=== PATIENT | male | born 1960 | race Caucasian/White ===

== ENCOUNTER 2019-11-01 11:33 | Outpatient (REF) | payer OTHER, SELFPAY ==
--- NOTE | 2019-11-01 08:30 | SKI_PTH ---
PATIENT: Ash Rodriguez LOC: [facility] U#:[id number] AGE/SX: 59/M ROOM: RE11/01/[address]: Johann Chung DO : 1960 BED: DIS: 11/01/2019 SPEC #: [id number] RECD: 11/02/19 12:17 STATUS: LILIYA REYair #: [id number] MIO: 11/01/19 08:[address]: Johann Chung DEPT: Surgical Specimen RECD BY: Areli Rivero Tissues: 1 - SKIN BIOPSY(SHAVE/PUNCH) Procedures: SKIN LEVEL 4 Comments: [id number]
== END 2019-11-01 11:53 ==
LOC: LBN 11:33
PROVIDERS: PCP Emergency Medicine; Visit Provider Emergency Medicine
DX: L82.1 Other seborrheic keratosis (principal)
CPT/HCPCS: 88305

== ENCOUNTER 2020-11-12 11:39 | Outpatient (REF) | payer OTHER, SELFPAY ==
[2020-11-12 22:28] LABS: PSA, Screening 0.8 ng/mL (0.0-3.5)
== END 2020-11-12 11:40 | disposition home or self-care (01) ==
LOC: LBN 11:39
PROVIDERS: PCP Emergency Medicine; Visit Provider Emergency Medicine
DX: Z12.5 Encounter for screening for malignant neoplasm of prostate (principal)
CPT/HCPCS: 84153

== ENCOUNTER 2021-06-11 02:21 | Outpatient (CLI) | payer OTHER, SELFPAY ==
[2021-06-11 09:28] LABS: Calculated LDL 51 mg/dL (<100); Cholesterol 111 mg/dL (<200); HDL Cholesterol 46 mg/dL (40-60); Triglyceride 72 mg/dL (<150)
== END 2021-06-11 02:22 | disposition home or self-care (01) ==
LOC: LBO 02:21
PROVIDERS: PCP Family Medicine; Visit Provider Emergency Medicine
DX: I21.3 ST elevation (STEMI) myocardial infarction of unspecified site (principal)
CPT/HCPCS: 36415; 80061; S9472

== ENCOUNTER 2021-06-23 08:00 | Outpatient (RCR) | payer OTHER, SELFPAY | END 2021-06-23 23:59 | disposition home or self-care (01) | LOC: CR 08:00 | PROVIDERS: PCP Family Medicine; Visit Provider Family Medicine | DX: Z51.89 Encounter for other specified aftercare (principal); I25.2 Old myocardial infarction | CPT/HCPCS: S9472 ==

== ENCOUNTER 2021-07-08 08:41 | Outpatient (CLI) | payer OTHER, SELFPAY ==
--- NOTE | 2021-07-08 08:30 | RT.EKG_ITS ---
APPROVED REPORT Exam: Resting ECG Reason for Exam: [place] Patient Location: O HR:56 bpm ECG Measurements Heart Rate 56 AXIS OH 189 P 69 QRSd 90 QRS 31 QT 412 T 50 QTc 398 Conclusion Sinus rhythm...normal P axis, V-rate 50- 99 Probable left atrial enlargement...P >50mS, <-0.10mV V1 Low voltage, extremity leads...all extremity leads <0.5mV Poor R wave progression
== END 2021-07-08 08:42 | disposition home or self-care (01) ==
LOC: DI.CARD 08:42
PROVIDERS: PCP Family Medicine; Visit Provider Internal Medicine Cardiovascular Disease
DX: I21.3 ST elevation (STEMI) myocardial infarction of unspecified site (principal)
CPT/HCPCS: 93010

== ENCOUNTER 2021-07-18 08:00 | Outpatient (RCR) | payer OTHER, SELFPAY | END 2021-07-21 23:59 | disposition home or self-care (01) | LOC: CR 08:00 | PROVIDERS: PCP Family Medicine; Visit Provider Family Medicine | DX: Z51.89 Encounter for other specified aftercare (principal); I25.2 Old myocardial infarction | CPT/HCPCS: S9472 ==

== ENCOUNTER 2021-08-20 08:00 | Outpatient (RCR) | payer OTHER, SELFPAY | END 2021-08-21 23:59 | disposition home or self-care (01) | LOC: CR 08:00 | PROVIDERS: PCP Family Medicine; Visit Provider Family Medicine | DX: Z51.89 Encounter for other specified aftercare (principal); I25.2 Old myocardial infarction | CPT/HCPCS: S9472 ==

== ENCOUNTER 2021-09-17 08:00 | Outpatient (RCR) | payer OTHER, SELFPAY | END 2021-09-20 23:59 | disposition home or self-care (01) | LOC: CR 08:00 | PROVIDERS: PCP Family Medicine; Visit Provider Internal Medicine Cardiovascular Disease | DX: Z51.89 Encounter for other specified aftercare (principal); I25.2 Old myocardial infarction | CPT/HCPCS: S9472 ==

== ENCOUNTER → 2021-10-28 00:33 | Outpatient (CLI) | payer OTHER, SELFPAY ==
--- NOTE | 2021-10-28 15:14 | DI.US_ITS ---
APPROVED REPORT EXAM: Comprehensive 2D, Doppler, and color-flow Echocardiogram Patient Location: Out-Patient Ship Rigger: Cammie Panda RDCS (AE) Indications: MN, Stemi Other Information Study Quality: Adequate Conclusion Normal left ventricular wall thickness and chamber size. Estimated ejection fraction is 55-60%. Wal l motion is normal Normal right ventricular size and systolic function Both atria are normal in size There is no structural or hemodynamically significant valvular disease Estimated right ventricular systolic pressure is normal, 26 mmHg Wall motion Left Ventricle The left ventricle is normal size. The left ventricular systolic function is normal. The left ventric ular ejection fraction is within the normal range. There is normal left ventricular wall thickness. T here is normal LV segmental wall motion. There is no ventricular septal defect visualized. LVEF is 58 %. Right Ventricle The right ventricle is normal size. The right ventricular systolic function is normal. The RVSP is 25 .8 mmHg. Atria The left atrium size is normal. The right atrium size is normal. The interatrial septum is intact wit h no evidence for an atrial septal defect. Aortic Valve The aortic valve is normal in structure. There is no aortic valvular stenosis. No aortic regurgitatio n is present. Mitral Valve The mitral valve is normal in structure. No evidence of mitral valve stenosis. Trace mitral regurgita tion. Tricuspid Valve The tricuspid valve is normal in structure. There is no tricuspid valve stenosis. Trace to mild tricu spid regurgitation. Pulmonic Valve The pulmonary valve is normal in structure. There is no pulmonic valvular stenosis. There is no pulmo fabio valvular regurgitation. Great Vessels The aortic root is normal in size. The ascending aorta is normal in size. IVC is normal in size and c ollapses >50% with inspiration. Pericardium There is no pericardial effusion. 2D Dimensions IVSD d PLAX 0.80 cm M: 0.6-1.2 LV Vol A2C d MOD 97.8 mL LVPW d PLAX 0.87 cm M: 0.6 - 1.2 LV Vol A4C d MOD 128.5 mL LVID d PLAX 5.04 cm M: 4.2 - 5.8 LA vol/ BSA A2C s A-L 17.3 mL/m2 LVDs 3.45 cm M: 2.5 - 4.0 LA vol/ BSA A4C s A-L 20.1 mL/m2 Ao Root d 3.00 cm M: 3.1 - 3.7 LA Vol/ BSA Biplane s A-L 19.6 mL/m2 RA Area A4C 13.84 cm2 LA Area A4C s MOD 14.69 cm2 RA Vol/ BSA A4C s A-L 17.5 mL/m2 LA Area A2C s MOD 12.95 cm2 Ao Asc Diam d 3.12 cm M: 2.6 - 3.4 LV EF A4C MOD 57.4 % LV EF Teichholz 57.9 % LV EF A2C MOD 60.6 % LVEF (Agarwal's) 59.12 % M: 52 - 72 LV EF Biplane MOD 59.1 % LV Volume 86.93 mL M: 62 - 150 SV 67.19 mL LV Volume Index 46.23 mL/m2 M: 34 - 74 SV Index 35.61 mL/m2 LV Vol Biplane MOD 113.6 mL FS 30.60 % M-Mode TAPSE 2.85 cm (M/F) >1.7 LV Diastology MV E' medial 0.073 (>0.07 m/s) E/A Ratio 0.7 LV E/e MED 7.45 (<14) MV E Vmax 0.55 (0.4-1.3 m/s) MV E' lateral 0.078 (>0.1 m/s) MV A Vmax 0.75 (0.4-1.3 m/s) LV E/e LAT 7.00 (<14) MV E/A Ratio 0.70 MV E/E' medial 7.47 MV E/E' lateral 7.00 Aortic Valve LVOT Area 3.01 cm2 AoV Area Vmax 2.94 cm2 LVOT Vmax 1.03 m/s AoV Area/ BSA (Vmax) 1.56 cm2/m2 LVOT Mean Jasbir. 0.67 m/s LEATHA Mean Jasbir. 2.62 cm2 LVOT Peak Grad 4.3 mmHg LEATHA Mean Jasbir. Index 1.39 cm2/m2 LVOT Mean Grad 2.1 mmHg LVOT VTI 0.229 m LVOT Diam s 1.95 cm AoV Vmax 1.06 m/s Velocity Ratio 0.97 AoV Mean Jasbir. 0.78 m/s AoV Peak Grad 4.5 mmHg LVOT SV 69.05 mL AoV Mean Grad 2.6 mmHg AoV VTI 0.241 m AoV Area VTI 2.86 cm2 AoV Area/ BSA (VTI) 1.52 cm/m2 Mitral Valve MV DT 281 (160-240 msec) MV PHT 81 msec MV Area PHT 2.70 cm2 MV VTI 0.301 m MV Area VTI 2.30 (4.0-6.0 cm2) Pulmonary Valve PV Vmax 1.10 (0.5-1.5 m/s) RVOT Peak Gr. 1.31 mmHg PV Peak Grad 4.8 mmHg RVOT Mean Gr. 0.85 mmHg PV Mean Grad 2.5 mmHg RVOT VTI 0.138 m PV VTI 0.264 m RVOT Vmax 0.57 m/s Tricuspid Valve TR Peak Grad 22.5 mmHg TR Vmax 2.38 m/s RA Pressure 3.00 mmHg RVSP (TR) 25.8 mmHg
== END ==
PROVIDERS: PCP Family Medicine; Visit Provider Internal Medicine Cardiovascular Disease
DX: I21.3 ST elevation (STEMI) myocardial infarction of unspecified site (principal)
CPT/HCPCS: 93306

== ENCOUNTER 2022-11-19 04:20 | Outpatient (CLI) | payer OTHER, SELFPAY ==
[2022-11-19 16:04] LABS: Hemoglobin A1C 6.4 % (<5.7)
[2022-11-19 17:02] LABS: BUN 22 mg/dL (7-18); CREATININE 1.4 mg/dL (0.70-1.30); Calcium 8.6 mg/dL (8.5-10.1); Calculated LDL 37 mg/dL (<100); Chloride 104 mmol/L (98-107); Cholesterol 95 mg/dL (<200); Estimated GFR 57.54 (mL/min/1.73m2); Glucose 83 mg/dL (74-106); HDL Cholesterol 46 mg/dL (40-60); Potassium 3.9 mmol/L (3.5-5.1); Sodium 141 mmol/L (136-145); Triglyceride 63 mg/dL (<150)
[2022-11-19 23:09] LABS: PSA, Screening 0.8 ng/mL (<=4.5)
== END 2022-11-19 04:21 | disposition home or self-care (01) ==
LOC: LBO 04:20
PROVIDERS: PCP Nurse Practitioner Family; Visit Provider Nurse Practitioner Family
DX: Z00.00 Encounter for general adult medical examination without abnormal findings (principal); Z12.5 Encounter for screening for malignant neoplasm of prostate
CPT/HCPCS: 36415; 80048; 80061; 84153; 83036; 84443

== ENCOUNTER 2023-05-27 10:46 | Outpatient (CLI) | payer OTHER, SELFPAY ==
--- NOTE | 2023-05-27 10:45 | RT.EKG_ITS ---
APPROVED REPORT Exam: Resting ECG Reason for Exam: follow up Patient Location: O HR:65 bpm ECG Measurements Heart Rate 65 AXIS NM 170 P 66 QRSd 90 QRS 23 QT 373 T 18 QTc 388 Conclusion Sinus rhythm...normal P axis, V-rate 50- 99 Borderline low voltage, extremity leads...all extremity leads <0.6mV I have reviewed and interpreted ECG and agree with software generated interpretation.
== END 2023-05-27 10:47 | disposition home or self-care (01) ==
LOC: DI.CARD 10:46
PROVIDERS: PCP Nurse Practitioner Family; Visit Provider Internal Medicine Interventional Cardiology
DX: I25.10 Atherosclerotic heart disease of native coronary artery without angina pectoris (principal)
CPT/HCPCS: 93010

== ENCOUNTER 2023-11-19 09:37 | Outpatient (CLI) | payer OTHER, SELFPAY ==
[2023-11-19 09:03] LABS: HCT 44.3 % (40.0-50.0); HGB 14.6 g/dL (13.5-17.5); MCH 30.8 pg (27.0-33.0); MCV 94 fL (80-95); MPV 9.4 fL (8.0-11.0); Platelet Count 192 10^3/uL (130-400); RBC 4.74 10^6/uL (4.36-5.78); RDW 12.8 % (11.8-14.1); RDW-SD 44.2 fL; WBC 5.46 10^3/uL (4.4-10.8)
[2023-11-19 09:21] LABS: Hemoglobin A1C 6.6 % (<5.7)
[2023-11-19 09:48] LABS: ALT 50 U/L (16-63); AST 25 U/L (15-37); Albumin 3.6 g/dL (3.4-5.0); Alkaline Phosphatase 65 U/L (46-116); Anion Gap 5.9 mmol/L (3-11); BUN 16 mg/dL (7-18); Bilirubin, Total 0.42 mg/dL (0.2-1.0); CO2 29.1 mmol/L (21.0-32.0); CREATININE 0.9 mg/dL (0.70-1.30); Calcium 8.8 mg/dL (8.5-10.1); Chloride 106 mmol/L (98-107); Estimated GFR 97.17 (mL/min/1.73m2); Glucose 119 mg/dL (74-106); Potassium 4.3 mmol/L (3.5-5.1); Sodium 141 mmol/L (136-145); Total Protein 7.2 g/dL (6.4-8.2)
[2023-11-19 22:28] LABS: HBs Antibody, Quant <3.1 mIU/mL (See Note); Hep B Surface Ab Negative (See Note); Hepatitis B Core Antibody Negative (Negative); Hepatitis B Surface Antigen Negative (Negative)
[2023-11-19 22:52] LABS: Hepatitis C Ab w Rflx HCV PCR Negative (Negative)
[2023-11-19 22:54] LABS: HIV-1/2 Ag & Ab Screen Negative (Negative)
== END 2023-11-19 09:38 | disposition home or self-care (01) ==
LOC: LBO 09:38
PROVIDERS: PCP Nurse Practitioner Family; Visit Provider Nurse Practitioner Family
DX: Z11.59 Encounter for screening for other viral diseases (principal); I25.10 Atherosclerotic heart disease of native coronary artery without angina pectoris; R73.03 Prediabetes; Z11.4 Encounter for screening for human immunodeficiency virus [HIV]
CPT/HCPCS: 36415; 80053; 85027; 86704; 86706; 86803; 87340; 87389; 83036

== ENCOUNTER 2024-02-19 10:48 | Outpatient (REF) | payer OTHER, SELFPAY ==
[2024-02-19 18:04] LABS: Anion Gap 5.8 mmol/L (3-11); BUN 12 mg/dL (7-18); CO2 30.2 mmol/L (21.0-32.0); Calcium 9.2 mg/dL (8.5-10.1); Chloride 104 mmol/L (98-107); Estimated GFR 85.63 (mL/min/1.73m2); Glucose 94 mg/dL (74-106); Potassium 4.4 mmol/L (3.5-5.1); Sodium 140 mmol/L (136-145)
[2024-02-19 19:04] LABS: COMMENT (LAB VIEW ONLY) 171.85 mg/dL; Microalb ug/mg Crea 3.1 ug/mg Cr
== END 2024-02-19 10:49 | disposition home or self-care (01) ==
LOC: LBN 10:48
PROVIDERS: PCP Nurse Practitioner Family; Visit Provider Nurse Practitioner Family
DX: E11.9 Type 2 diabetes mellitus without complications (principal)
CPT/HCPCS: 80048; 82043; 82570

== ENCOUNTER 2024-03-16 04:05 | Outpatient (CLI) | payer OTHER, SELFPAY ==
--- NOTE | 2024-03-16 09:34 | W.NUTRFU ---
Date of service: 03/16/24 Time of Service: 08:30 Nutrition Note NOTE: Ash referred for nutrition visit for diabetes education/mgt with atherosclerotic heart disease. He is 64yo with a weight of 74.4kg and height of 66.75 at his provider appt 02/19/24 with a resulting BMI of 25.9 He takes 500mg ER metformin BID along with atovastatin and meoptolol ER. He is also on aspirin therapy. Estimated energy needs 2023kcals (suggested he work on planning a 1800kcal menu). Protein: 30% of kcals = 135g protein total carbohydrate= 180g (40% of kcals) fat - 60g with most coming from PUFA/MUFA and n-3's Told Ash to prioritize getting familiar with carb serving sizes for 15grams (reviewed education materials) and aiming for no more than 12 servings from slower carb sources like whole grains, starchy veggies like beans, corn, squash, sweet potato etc.... Encouraged no more than 30g added sugar per day. we reviewed sample menu. Ash left with my contact info should he have questions, need for further follow up. Time Spent in Nutritional Counseling and Treatment: 40 minutes
== END 2024-03-16 04:06 | disposition home or self-care (01) ==
LOC: DS 04:05
PROVIDERS: PCP Nurse Practitioner Family; Visit Provider Dietitian, Registered
DX: I25.10 Atherosclerotic heart disease of native coronary artery without angina pectoris (principal); E11.9 Type 2 diabetes mellitus without complications
CPT/HCPCS: 00123; 97802

== ENCOUNTER 2024-04-27 01:22 | Outpatient (CLI) | payer OTHER, SELFPAY ==
--- NOTE | 2024-04-27 06:25 | ETT_ITS ---
APPROVED REPORT Exam: Exercise Treadmill Patient Location: Out-Patient Room/Bed: Stress Nurse: Lucila Day RN and Luis Navarro RN Ordering Provider:CIERRA KAM, Contact Number: [phone] BMI: 26.46 Baseline Rhythm: Sinus Rhythm. Indications: Coronary Artery Disease; DOT physical requirement. Medical History Medical History: CAD; Diabetes Mellitus Type 2; STEMI w/ one stent (05/13). Cardiac Medications: Aspirin; Atorvastatin; Metformin; Metoprolol; Nitroglycerin. Allergies: None. Cardiac Risk Factors: CVD; Diabetes Mellitus Type 2; Former Smoker. Previous Cardiac Procedures: Cardiac Stent (05/13). Pretest Chest Pain Characteristics: None. Exercise History: Physically active. Physical Disabilities: None. Lung Sounds: Clear bilaterally throughout, anterior and posterior. Heart Sounds: S1 and S2 auscultated. Stress Test Details Test: Exercise stress testing was performed using a Stu protocol. Rest Stress HR Resting HR Supine: 62 bpm Max Heart Rate (APMHR): 158 bpm Resting HR Standin bpm Target HR (85% APMHR): 134 bpm Max HR Achieved: 160 bpm % of APMHR: 101 Recovery HR: 81 bpm HR response to stress: Normal HR response to stress. BP Resting BP Supine: 132/78 mmHg Resting BP Standin/72 mmHg Max BP: 152/60 mmHg Recovery BP: 112/74 mmHg BP response to stress: Normal blood pressure response to stress. ECG Resting ECG: Sinus Rhythm. Ectopy: None. Stress ECG: Sinus Tachycardia. ST Change: No significant ST segment changes noted. Arrhythmia: Rare PVC's. Recovery ECG: Sinus Rhythm. Recovery ST Change: No significant ST segment changes noted. Recovery Arrhythmia: ?Sinus Pauses vs. ?Nonconducted PAC's. Clinical Reason for Termination: Target HR Achieved. Stress Symptoms: None. Exercise duration: 06 min42 sec Highest Stage Reached: Stage 3: 3.4 mph at 14% grade. Exercise capacity: 8.14 METs Angina Score: None Sow Treadmill Score: 6.4 Rate Pressure Product: [id number] Stress ECG Conclusion 1. Resting electrocardiogram is normal. 2. Patient exercised on the Stu protocol and completed workload of 8 METS 3. Normal heart rate and blood pressure response to exercise. The patient achieved 100% of predicted heart rate for age 4. There was no electrocardiographic evidence of myocardial ischemia 5. There were no significant dysrhythmias Sow Treadmill Score is 6.4 which is Low risk. Stress Test Summary STAGE Time (mins) Speed (mph) Grade (%) HR BP SpO2 SYMPTOMS METS Supine 62 132/78 96 Standing 65 118/72 92 1 3 1.7 10 110 110/64 90 4.5 2 6 2.5 12 145 128/86 88 7 3 9 3.4 14 158 10 1 min recovery 130 152/60 90 3 min recovery 77 140/64 96 6 min recovery 81 112/74 94 Pt. was conversing pleasantly with nursing staff upon leaving the Stress Lab. Pt. left ambulatory in no apparent distress.
== END 2024-04-27 01:42 ==
LOC: DI 01:22
PROVIDERS: PCP Nurse Practitioner Family; Visit Provider Nurse Practitioner Family
DX: I25.10 Atherosclerotic heart disease of native coronary artery without angina pectoris (principal)
CPT/HCPCS: 93017

== ENCOUNTER 2024-06-05 07:40 | Day surgery (SDC) | payer OTHER, SELFPAY ==
--- NOTE | 2024-06-04 17:21 | W.PM.DSUDISC ---
Date of service: 06/05/24 Discharge Plan Disposition Patient Disposition: Home Condition: Good Discharge Details Reason For Visit: screening colonoscopy Attending Provider: Dontrell Yu Primary Care Provider: Suellen York Home Meds and New Rx's Prescriptions: Continued aspirin 81 mg tablet,delayed release (DR/EC) 81 mg PO DAILY metformin 500 mg tablet extended release 24 hr 500 mg PO DAILY Qty: 90 4RF nitroglycerin 0.4 mg tablet, sublingual 0.4 mg sublingual Q5M PRN (Reason: chest pain) Qty: 20 5RF Rx Instructions: do not exceed 3 doses per episode atorvastatin 80 mg tablet See Rx Instructions .ROUTE .COMPLEX Qty: 90 3RF Dose Instruction: TAKE ONE TABLET BY MOUTH EVERY DAY Rx Instructions: TAKE ONE TABLET BY MOUTH EVERY DAY metoprolol succinate 25 mg tablet extended release 24 hr 25 mg PO DAILY Qty: 90 3RF Discontinued polyethylene glycol 3350 17 gram/dose powder 238 g PO ONCE Qty: 238 0RF Rx Instructions: take per colonoscopy instructions bisacodyl [Dulcolax (bisacodyl)] 5 mg tablet,delayed release (DR/EC) 5 mg PO ONCE Qty: 4 0RF Rx Instructions: take per colonoscopy instructions Discharge Instructions Instructions: Colon polyps, Diverticulosis Additional Instructions: Ash, was great seeing you again today, and I hope you are comfortable throughout the procedure. Everything went very smoothly. Your prep was outstanding. I did find to remove a very small bit of tissue that may be a polyp. It is hard to say when there is the size, but to be safe, I will send this off to the pathologist for their review. If it is a polyp, we will use that information to guide the timing of your next colonoscopy. Those results take about a week or 2 to get back, but once my office has them, we will be in touch with recommendations. Incidentally, he also have a little bit of diverticulosis. Diverticula are little weak spots in the muscular layer of the colon wall that caused the inside lining to pooch or pocket outwards a bit. These can get infected or inflamed. When that happens, patients are typically pretty sick and often times experience quite a bit of pain usually in the left lower part of their abdomen. During those episodes, we refer to it as diverticulitis, and it is usually treated with antibiotics, although there is some debate about the utility of antibiotics in those cases. Hopefully, years will never bother you. I did attach a little bit of information here about diverticulosis as well as colorectal polyps. If you need anything or have any questions at all, please do not hesitate to ask, otherwise my office will be in touch. 1. If tolerated, consume a soft, low fiber diet for 1-2 days. 2. Do not drive, drink alcohol, operate machinery, make critical decisions, or do activities that require coordination or balance for 24 hours. 3. Because air was put into your colon during the procedure, expelling air from your rectum (passing gas or farting) is normal. 4. You may not have a bowel movement for 1-3 days because of the colonoscopy prep. This is normal. 5. Go directly to the emergency room if you notice any of the following: Develop chills (warm to touch), or if you have a thermometer and your temperature is above 101 Difficulty breathing or difficultly swallowing Persistent vomiting Severe abdominal pain, other than gas cramps Severe chest pain Black, tarry stools Any bleeding ? exceeding one tablespoon 6. Call your physician if the site where your intravenous was started becomes red, swollen, painful, and warm to touch. 7. Your physician has reviewed your pre-procedure medications. Please continue to take those medications as previously ordered. You will be given specific information/education regarding any changes to your medications before leaving. Activity:: Activity as Tolerated Diet:: As Tolerated Discharge Orders Discharge Orders: Discharge Order (Routine); Ordered 06/04/24 Ordered By: Dontrell Yu DS: Diagnosis Discharge Diagnosis (1) Encounter for screening colonoscopy: Status: Acute Asessment and Plan: Follow-up on polypectomy results
--- NOTE | 2024-06-04 17:23 | COLE_ITS ---
Date of service: 06/05/24 Time of Service: 09:54 Colonoscopy Report Date of procedure: 06/05/24 Pre-op diagnosis general: screening colonoscopy Post-op diagnosis procedure note: other (Colon polyps, diverticulosis) Procedure: colonoscopy with polypectomy Surgeon: Dontrell Yu Anesthesia Type: General:No Airway Estimated blood loss (mL): 5 Pathology: other (0.25 cm polyp at 100 cm) Complications: None Disposition: same day Indications: Ash is a 64 year old man who needs his next screening colonoscopy Prep: Miralax/Dulcolax Procedure Start Time: :23 Procedure End Time: 09:45 Retraction Time: 12 Findings: Sigmoid diverticulosis, 0.25 cm polyp at 100 cm Procedure Description: After the induction of monitored anesthetic care, and with Ash in left lateral decubitus position, I began by performing an external anorectal exam.? Perineum and skin were normal, as was the anal verge.? There was no evidence of external hemorrhoids.? Next, I performed a digital rectal exam.? I did not appreciate any abnormal findings.? Next, I advanced a colonoscope into the rectal vault.? I performed retroflexion.? This appeared normal.? Using insufflation, I then advanced the colonoscope beyond the rectal folds and into the sigmoid colon before advancing towards the cecum.? The quality of the prep was outstanding.? The scope was noted to be in the cecum by identification of the ileocecal valve and appendiceal orifice.? I then began withdrawing the colonoscope using repeated irrigation as necessary for full evaluation of the colonic mucosa. ?Around 100 cm from the anal verge was a 0.25 cm flat polyp. This was removed with cold forceps with minimal bleeding. There was some sigmoid diverticulosis. Once the scope was withdrawn to the level of the rectum, great care was taken to examine portions of the rectal folds.? Finally, the scope was withdrawn and the patient was brought to the same-day surgery recovery unit as the anesthetic wore off. ?The findings and instructions were shared with the patient prior to discharge. Thompson Bowel Prep Thompson Bowel Prep Right Colon: 3 Left Colon: 3 Transverse Colon: 3 Total Score: 9
[2024-06-05 07:54] VITALS: BP 111/85; PULSE 74; RESP 20; TEMP 36.4; O2SAT 96
[2024-06-05] MEDS: Lactated Ringers 1,000 ML 80 ML IV (08:11)
--- NOTE | 2024-06-05 08:31 | ANES.PREOP_ITS ---
General Info Date of Service Date Performed: 06/05/24 Height: 5 ft 6.75 in Weight: 71.9 kg Body Mass Index (BMI): 25.0 Surgical Procedure: Operation Date: 06/05/24 09:05 Proposed Procedure Side Surgeon p Mani Yu MD Meds Allergies and Home Medications Allergies Allergy/AdvReac Type Severity Reaction Status Date / Time No Known Allergies Allergy Verified 06/05/24 07:53 Home Medication ?Medication ?Instructions ?Recorded aspirin 81 mg tablet,delayed 81 mg PO DAILY 05/29/21 release nitroglycerin 0.4 mg sublingual 0.4 mg sublingual Q5M PRN chest 04/05/23 tablet pain #20 tabs atorvastatin 80 mg tablet See Rx Instructions .Route 08/16/23 .COMPLEX #90 tabs metoprolol succinate 25 mg 25 mg PO DAILY #90 tabs 08/16/23 tablet,extended release 24 hr metformin 500 mg tablet,extended 500 mg PO DAILY #90 tabs 02/19/24 release 24 hr Current Visit Medications: Current Medications Generic Name Dose Route Start Last Admin Trade Name Chinoq PRN Reason Stop Dose Admin Ringer's Solution 1,000 mls @ 80 mls/hr 06/05/24 07:45 06/05/24 08:11 IV 07/05/24 07:44 80 mls/hr INFUSION ESTRELLITA Administration IV Miscellaneous Supplies 1 each 06/05/24 06:00 Iv Access IV 06/05/24 23:59 DIRECTED ESTRELLITA Ondansetron HCl 4 mg 06/04/24 17:24 Ondansetron 4 Mg/2 Ml Vial IVP 07/04/24 17:23 Q4H PRN PRN Nausea / Vomiting Sodium Chloride 0 ml 06/05/24 06:00 Normal Saline Flush 10 Ml Syr IV 06/05/24 23:59 PRN PRN Sodium Chloride 0 ml 06/05/24 06:00 Normal Saline 10 Ml Vial IJ 06/05/24 23:59 DIRECTED PRN Sterile Water 0 ml 06/05/24 06:00 Water,Injection,Sterile 10 Ml Vial IJ 06/05/24 23:59 DIRECTED PRN PFSH Active Problems Active Problems: Problem Status Onset Code Encounter for screening colonoscopy Acute Z12.11 Type 2 diabetes mellitus Acute E11.9 Sigmoid diverticulosis Chronic K57.30 Coronary artery disease Chronic I25.10 Medical History Medical History STEMI (ST elevation myocardial infarction) (05/23/21) 2020 Former cigarette smoker ~40pack/yr hx, thinking about LDCT Surgical History Surgical History Status post insertion of drug-eluting stent into left anterior descending (LAD) artery 2020 Tobacco Smoking/Tobacco Use Status: Former Tobacco Use Passive smoking exposure: No Second hand exposure: Yes Alcohol Alcohol Intake: current Alcohol intake frequency: holidays/special occasions only Substance Use Substance use: Never Substance use type: does not use Vital Signs and Lab Results Vital Signs Most Recent Vital Signs in EMR: Most Recent Vital Signs Temp Pulse Resp BP Pulse Ox 36.4 C L 74 20 111/85 96 06/05/24 07:54 06/05/24 07:54 06/05/24 07:54 06/05/24 07:54 06/05/24 07:54 Lab Results Blood Type / Crossmatch: No Data to Display Complete Blood Count: No Data to Display Complete Metabolic Panel: Hemoglobin A1c 6.1 % (4.5-5.7) H 05/31/24 08:13 Liver Function Panel: No Data to Display Coagulation Panel: No Data to Display Cardiac Panel: No Data to Display Arterial Blood Gas: No Data to Display Venous Blood Gas: No Data to Display Pancreas Panel: No Data to Display Thyroid Panel: No Data to Display Infectious Disease: No Data to Display Blood Cultures: No Data to Display Toxicology Panel: No Data to Display Imaging and Studies Imaging and Studies Study information below may be from another EMR and interpreted by another provider. Please see original notes in EMR for more complete details. EKG Summary: EKG PATIENT NAME: Ash Rodriguez UNIT #: [id number] ORDERING PROVIDER: Donato Reveles M.D. PRIMARY CARE PROVIDER: SUELLEN KAM NP DATE/TIME OF SERVICE: 05/27/23 1044 : 1960 PERFORMING LOCATION: .CARD APPROVED REPORT Exam: Resting ECG Reason for Exam: follow up Patient Location: O HR:65 bpm ECG Measurements Heart Rate 65 AXIS WI 170 P 66 QRSd 90 QRS 23 QT 373 T18 QTc 388 Conclusion Sinus rhythm...normal P axis, V-rate 50- 99 Borderline low voltage, extremity leads...all extremity leads <0.6mV I have reviewed and interpreted ECG and agree with software generated interpretation. ----- <Electronically signed by Donato Reveles M.D. in OV> E-Sign Date: 05/28/23 E-Sign Time: 1623 Stress Test Summary: STRESS TEST PATIENT NAME: Ash Rodriguez UNIT #: [id number] ORDERING PROVIDER: Suellen Kam NP PRIMARY CARE PROVIDER: SUELLEN KAM NP DATE/TIME OF SERVICE: 04/27/24 ADMITTING PROVIDER: KRISTAN CHANEY MD : 1960 APPROVED REPORT Exam: Exercise Treadmill Patient Location: Out-Patient Room/Bed: Stress Nurse: Lucila Day RN and Luis Navarro RN Ordering Provider:SUELLEN KAM, Contact Number: [phone] BMI: 26.46 Baseline Rhythm: Sinus Rhythm. Indications: Coronary Artery Disease; DOT physical requirement. Medical History Medical History: CAD; Diabetes Mellitus Type 2; STEMI w/ one stent (05/13). Cardiac Medications: Aspirin; Atorvastatin; Metformin; Metoprolol; Nitroglycerin. Allergies: None. Cardiac Risk Factors: CVD; Diabetes Mellitus Type 2; Former Smoker. Previous Cardiac Procedures: Cardiac Stent (05/13). Pretest Chest Pain Characteristics: None. Exercise History: Physically active. Physical Disabilities: None. Lung Sounds: Clear bilaterally throughout, anterior and posterior. Heart Sounds: S1 and S2 auscultated. Stress Test Details Test: Exercise stress testing was performed using a Stu protocol. Rest Stress HR Resting HR Supine: 62 bpmMax Heart Rate (APMHR): 158 bpm Resting HR Standin bpmTarget HR (85% APMHR): 134 bpm Max HR Achieved: 160 bpm % of APMHR: 101 Recovery HR: 81 bpm HR response to stress: Normal HR response to stress. BP Resting BP Supine: 132/78 mmHg Resting BP Standin/72 mmHg Max BP: 152/60 mmHg Recovery BP: 112/74 mmHg BP response to stress: Normal blood pressure response to stress. ECG Resting ECG: Sinus Rhythm. Ectopy: None. Stress ECG: Sinus Tachycardia. ST Change: No significant ST segment changes noted. Arrhythmia: Rare PVC's. Recovery ECG: Sinus Rhythm. Recovery ST Change: No significant ST segment changes noted. Recovery Arrhythmia: ?Sinus Pauses vs. ?Nonconducted PAC's. Clinical Reason for Termination: Target HR Achieved. Stress Symptoms: None. Exercise duration: 06 min42 sec Highest Stage Reached: Stage 3: 3.4 mph at 14% grade. Exercise capacity: 8.14 METs Angina Score: None Sow Treadmill Score: 6.4 Rate Pressure Product: 05913 Stress ECG Conclusion 1. Resting electrocardiogram is normal. 2. Patient exercised on the Stu protocol and completed workload of 8 METS 3. Normal heart rate and blood pressure response to exercise. The patient achieved 100% of predicted heart rate for age 4. There was no electrocardiographic evidence of myocardial ischemia 5. There were no significant dysrhythmias Sow Treadmill Score is 6.4 which is Low risk. Stress Test Summary STAGETime (mins)Speed (mph)Grade (%)[id number] Unvuxm85910/7896 Aohangbx41934/7292 [id number]/62781.5 [id number]/56506 [id number] 1 min [id number]/6090 3 min rpuyolus78200/6496 6 min [id number]/7494 Pt. was conversing pleasantly with nursing staff upon leaving the Stress Lab. Pt. left ambulatory in no apparent distress. Dictated by: KRISTAN CHANEY MDKESHAWN Dictated:: 04/27/24839 <Electronically signed by Kristan Chaney M.D. in [place]> 04/27/24840 Transcribed Date: 04/27/24 Transcribed Time: 839 By: KIMMIE This is privileged, confidential information, intended only for the provider named. Any use or distribution by any person other than this provider is strictly prohibited. If you receive this report in error, please notify us immediately at [phone] and return the original report to us at the address above. Thank you. Echocardiogram Summary: Patient Name: Ash Rodriguez Unit #: [id number] Loc: DI Ordering Provider: Kristan Chaney M.D. Status: REG CLI Primary Care Provider: Jonnie Diaz M.D. Date of Exam: 10/28/21 Sex: M Admission Date: 10/28/21 : 1960 Age: 61 APPROVED REPORT EXAM: Comprehensive 2D, Doppler, and color-flow Echocardiogram Patient Location: Out-Patient Director Meetings: Cammie Panda RDCS (AE) Indications: OH, Stemi Other Information Study Quality: Adequate Conclusion Normal left ventricular wall thickness and chamber size. Estimated ejection fraction is 55-60%. Wall motion is normal Normal right ventricular size and systolic function Both atria are normal in size There is no structural or hemodynamically significant valvular disease Estimated right ventricular systolic pressure is normal, 26 mmHg Wall motion Left Ventricle The left ventricle is normal size. The left ventricular systolic function is normal. The left ventricular ejection fraction is within the normal range. There is normal left ventricular wall thickness. There is normal LV segmental wall motion. There is no ventricular septal defect visualized. LVEF is 58%. Right Ventricle The right ventricle is normal size. The right ventricular systolic function is normal. The RVSP is 25.8 mmHg. Atria The left atrium size is normal. The right atrium size is normal. The interatrial septum is intact with no evidence for an atrial septal defect. Aortic Valve The aortic valve is normal in structure. There is no aortic valvular stenosis. No aortic regurgitation is present. Mitral Valve The mitral valve is normal in structure. No evidence of mitral valve stenosis. Trace mitral regurgitation. Tricuspid Valve The tricuspid valve is normal in structure. There is no tricuspid valve stenosis. Trace to mild tricuspid regurgitation. Pulmonic Valve The pulmonary valve is normal in structure. There is no pulmonic valvular stenosis. There is no pulmonic valvular regurgitation. Great Vessels The aortic root is normal in size. The ascending aorta is normal in size. IVC is normal in size and collapses >50% with inspiration. Pericardium There is no pericardial effusion. 2D Dimensions IVSD d PLAX 0.80 cm M: 0.6-1.2LV Vol A2C d MOD 97.8 mL LVPW d PLAX 0.87 cm M: 0.6 - 1.2LV Vol A4C d MOD 128.5 mL LVID d PLAX 5.04 cm M: 4.2 - 5.8LA vol/ BSA A2C s A-L17.3 mL/m2 LVDs 3.45 cm M: 2.5 - 4.0LA vol/ BSA A4C s A-L20.1 mL/m2 Ao Root d 3.00 cm M: 3.1 - 3.7LA Vol/ BSA Biplane s A-L 19.6 mL/m2 RA Area A4C13.84 cm2LA Area A4C s MOD 14.69 cm2 RA Vol/ BSA A4C s A-L 17.5 mL/m2LA Area A2C s MOD 12.95 cm2 Ao Asc Diam d 3.12 cm M: 2.6 - 3.4LV EF A4C MOD 57.4 % LV EF Teichholz 57.9 %LV EF A2C MOD 60.6 % LVEF (Agarwal's)59.12 % M: 52 - 72LV EF Biplane MOD 59.1 % LV Kkcuhp34.93 mL M: 62 - 624JY84.19 mL LV Volume Index46.23 mL/m2 M: 34 - 74SV Index35.61 mL/m2 LV Vol Biplane MOD 113.6 mL FS30.60 % M-Mode TAPSE 2.85 cm (M/F) >1.7 LV Diastology MV E' medial0.073 (>0.07 m/s)E/A Ratio 0.7 LV E/e MED7.45 (<14)MV E Vmax 0.55 (0.4-1.3 m/s) MV E' lateral0.078 (>0.1 m/s)MV A Vmax 0.75 (0.4-1.3 m/s) LV E/e LAT7.00 (<14)MV E/A Ratio 0.70 MV E/E' medial 7.47 MV E/E' lateral7.00 Aortic Valve LVOT Area3.01 cm2AoV Area Vmax2.94 cm2 LVOT Vmax 1.03 m/sAoV Area/ BSA (Vmax)1.56 cm2/m2 LVOT Mean Jasbir.0.67 m/sAVA Mean Jasbir.2.62 cm2 LVOT Peak Grad 4.3 mmHgAVA Mean Jasbir. Index1.39 cm2/m2 LVOT Mean Grad 2.1 mmHg LVOT VTI0.229 m LVOT Diam s 1.95 cm AoV Vmax1.06 m/s Velocity Ratio 0.97 AoV Mean Jasbir.0.78 m/s AoV Peak Grad4.5 mmHg LVOT SV 69.05 mL AoV Mean Grad2.6 mmHg AoV VTI0.241 m AoV Area VTI2.86 cm2 AoV Area/ BSA (VTI)1.52 cm/m2 Mitral Valve MV DT 281 (160-240 msec) MV PHT81 msec MV Area PHT 2.70 cm2 MV VTI 0.301 m MV Area VTI 2.30 (4.0-6.0 cm2) Pulmonary Valve PV Vmax 1.10 (0.5-1.5 m/s)RVOT Peak Gr.1.31 mmHg PV Peak Grad 4.8 mmHgRVOT Mean Gr.0.85 mmHg PV Mean Grad 2.5 mmHgRVOT VTI0.138 m PV VTI 0.264 mRVOT Vmax 0.57 m/s Tricuspid Valve TR Peak Grad 22.5 mmHgTR Vmax 2.38 m/s RA Pressure 3.00 mmHg RVSP (TR) 25.8 mmHg Ordered By: Kristan Chaney M.D. CC: Dictated By: Kristan Chaney M.D. 10/28/21 1824 <Electronically signed by Kristan Chaney M.D. in [place]> 10/30/21 0812 Transcribed By: Kristan Chaney MD This is privileged, confidential information intended only for the provider named. Any use or distribution by any person other than this provider is strictly prohibited. If you receive this report in error, please notify us immediately at [phone] and return the original report to us at the address above. Thank-you. Anesthesia Assessment and Plan Anesthesia History Personal History: No History of Anesthesia Complications Family History: No Family History of Anesthesia Complications Exercise Tolerance Exercise Tolerance: Metabolic Equivalents>4 Pertinent Negatives Pertinent Negatives: No Symptoms of GERD Cardiac & Pulmonary Exam Cardiac Exam: Normal S1/S2 Heart Sounds Pulmonary Exam: Clear Bilateral Breath Sounds Implantable Cardiac Device Does patient have a Pacemaker or an ICD?: No Airway Exam Known Difficult Airway: No Mallampati Class: 3 Mouth Opening: Normal (> 3cm) Thyromental Distance: Greater than 3 cm Neck Range of Motion: Full ROM Neck Circumference: Normal Teeth Condition: Normal Dentition ASA Classification ASA Score: ASA 2 Emergency Case?: No NPO Status NPO Status: NPO Clears >2 hours, Solids >8 hours Anesthesia Plan Resuscitation Status: Full Code Anesthesia Technique: General Anesthesia Airway Planned: Natural Airway Monitors Used: Standard Monitors
[2024-06-05 09:15] VITALS: BMI 25.0
--- NOTE | 2024-06-05 09:38 | BOWEL_PTH ---
PATIENT: Ash Rodriguez LOC: [facility] U#:[id number] AGE/SX: 64/M ROOM: RE06/05/[address]: Dontrell Yu MD : 1960 BED: DIS: 06/05/2024 SPEC #: [id number] RECD: 06/05/24 13:02 STATUS: LILIYA REQ #: [id number] MIO: 06/05/24 09:[address]: Dontrell Yu DEPT: Surgical Specimen RECD BY: Areli Rivero ENTERED: 06/05/24 13:03 SP TYPE: Bowel OTHR DR: Suellen York, YESSENIA Tissues: 1 - BIOPSY BOWEL Procedures: GROSS AND MICRO LEVEL 4 Comments: [id number]
[2024-06-05 09:50] VITALS: BP 103/68; PULSE 61; RESP 16; TEMP 36.2; O2SAT 97
--- NOTE | 2024-06-05 10:04 | W.ANESPOSTOP ---
Postoperative Evaluation Date, Time and Location Date Performed: 06/05/24 Time Performed: 10:05 Patient Location: Day Surgery Unit Vital Signs Most Recent Imported Vital Signs: Temp Pulse Resp BP Pulse Ox 36.3 C L 63 16 120/72 97 06/05/24 10:16 06/05/24 10:16 06/05/24 10:16 06/05/24 10:16 06/05/24 10:16 Pain Score Most Recent Pain Score: Most Recent Pain Score Pain Level 0 06/05/24 07:54 Assessment Mental Status: Awake (Alert & Oriented to Patient Baseline) Airway and Respiratory Function: Patent airway with normal (patient baseline) respiratory exam Cardiovascular Function: Hemodynamically Stable Hydration Status: Adequately Hydrated Nausea & Vomiting: No Nausea or Vomiting Pain: Pt. Denies Any Pain Peripheral Nerve Block: Patient did not receive a nerve block
[2024-06-05 10:16] VITALS: BP 120/72; PULSE 63; RESP 16; TEMP 36.3; O2SAT 97
== END 2024-06-05 10:47 | disposition home or self-care (01) ==
LOC: SUR 07:41
PROVIDERS: PCP Nurse Practitioner Family; Visit Provider Surgery
PROC: 0DJD8ZZ Inspection of Lower Intestinal Tract, Via Natural or Artificial Opening Endoscopic (ICD-10-PCS; CPT 45378; principal; 2024-06-05 09:00)
DX: Z12.11 Encounter for screening for malignant neoplasm of colon (principal); D12.3 Benign neoplasm of transverse colon; K57.30 Diverticulosis of large intestine without perforation or abscess without bleeding
CPT/HCPCS: 45380; 88305; J2704

== ENCOUNTER 2024-12-26 07:54 | Outpatient (CLI) | payer OTHER, SELFPAY ==
[2024-12-26 08:21] LABS: ALT 40 U/L (16-63); AST 19 U/L (15-37); Albumin 3.7 g/dL (3.4-5.0); Alkaline Phosphatase 59 U/L (46-116); Anion Gap 6.3 mmol/L (3-11); BUN 19 mg/dL (7-18); Bilirubin, Total 0.3 mg/dL (0.2-1.0); CO2 30.7 mmol/L (21.0-32.0); Calcium 8.9 mg/dL (8.5-10.1); Calculated LDL 42 mg/dL (<100); Chloride 104 mmol/L (98-107); Cholesterol 116 mg/dL (<200); Estimated GFR 96.57 (mL/min/1.73m2); Glucose 128 mg/dL (74-106); HDL Cholesterol 64 mg/dL (>or=40); Potassium 4.5 mmol/L (3.5-5.1); Sodium 141 mmol/L (136-145); Total Protein 7.0 g/dL (6.4-8.2); Triglyceride 52 mg/dL (<150)
== END 2024-12-26 07:55 | disposition home or self-care (01) ==
LOC: LBO 07:54
PROVIDERS: PCP Nurse Practitioner Family; Visit Provider Nurse Practitioner Family
DX: E11.9 Type 2 diabetes mellitus without complications (principal); Z13.220 Encounter for screening for lipoid disorders
CPT/HCPCS: 36415; 80053; 80061

== ENCOUNTER 2025-01-31 08:28 | Outpatient (CLI) | payer OTHER, SELFPAY ==
--- NOTE | 2025-01-31 10:59 | DI.RAD_ITS ---
Exam(s) XR CHEST 2V PA LATERAL EXAM: XR CHEST 2V PA LATERAL CLINICAL HISTORY: S/P BX, F/U PNEUMOTHORAX,J95.811 TECHNIQUE: 2D digital imaging was performed. Two views. COMPARISON: CT CT CHEST LUNG CANCER SCREEN from 12/26/2024 No prior chest x-rays are available. FINDINGS: No prior chest x-rays are available for comparison after the right lower lobe biopsy. These were likely performed elsewhere. HEART: Normal size. Aorta: Not dilated. PULMONARY VASCULATURE: Normal. MEDIASTINUM: Unremarkable. LUNGS: Mildly increased densities at the right lung base. PLEURAL SPACE: There is a right pneumothorax seen at the right upper lobe with the lung age measuring 2.3 cm to the margin of the ribs. Pneumothorax is also visible at the lateral right lung base measuring 2 cm on the lung edge to the border of rib. No pleural effusion. BONE:Unremarkable for age. SOFT TISSUES: Unremarkable. IMPRESSION: Small right pneumothorax. DATA REPOSITORY: RADIATION DOSE DELIVERED:
== END 2025-01-31 08:48 ==
LOC: DI 08:29
PROVIDERS: PCP Nurse Practitioner Family; Visit Provider Student in an Organized Health Care Education/Training Program
DX: J95.811 Postprocedural pneumothorax (principal)
CPT/HCPCS: 71046

== ENCOUNTER 2025-02-08 04:19 | Outpatient (CLI) | payer OTHER, SELFPAY ==
--- NOTE | 2025-02-08 08:00 | DI.RAD_ITS ---
Exam(s) XR CHEST 2V PA LATERAL EXAM: XR CHEST 2V PA LATERAL CLINICAL HISTORY: PNEUMOTHORAX AFTER BIOPSY J95.811 FU POST PROCEDURAL PNEUMOTHORAX TECHNIQUE: 2D digital imaging was performed of the chest. Two images were obtained. PA and lateral views were obtained. COMPARISON: CT CT CHEST LUNG CANCER SCREEN from 12/26/2024 CR XR CHEST 2V PA LATERAL from 01/31/2025 FINDINGS: MEDIASTINUM: Normal. HEART: Normal. PULMONARY VASCULATURE: Normal. LUNGS: There is again seen at 3 cm soft tissue mass in the posterior medial right lower lobe. There are no focal consolidating infiltrates. The lungs are hyperinflated with flattened diaphragms consistent with underlying COPD. PLEURAL SPACE: No pleural effusion or pneumothorax. BONE:Within normal limits for the patient's age. OTHER FINDINGS:Normal. IMPRESSION: 1. No evidence of a pneumothorax. 2. Stable 3 cm right lower lobe pulmonary mass. 3. No acute pulmonary process. DATA REPOSITORY: RADIATION DOSE DELIVERED:
== END 2025-02-08 04:39 ==
LOC: DI 04:19
PROVIDERS: PCP Nurse Practitioner Family; Visit Provider Student in an Organized Health Care Education/Training Program
DX: J95.811 Postprocedural pneumothorax (principal); R91.8 Other nonspecific abnormal finding of lung field
CPT/HCPCS: 71046

== ENCOUNTER 2025-02-23 09:19 | Outpatient (CLI) | payer OTHER, SELFPAY ==
--- NOTE | 2025-02-23 09:15 | RT.EKG_ITS ---
APPROVED REPORT Exam: Resting ECG Reason for Exam: follow needed Patient Location: O HR:50 bpm ECG Measurements Heart Rate 50 AXIS AL 198 P 67 QRSd 89 QRS -6 QT 437 T 20 QTc 399 Conclusion Sinus rhythm...normal P axis, V-rate 50- 99 Probable left atrial enlargement...P >50mS, <-0.10mV V1 Baseline wander in lead(s) V2 Otherwise normal ECG
== END 2025-02-23 09:20 | disposition home or self-care (01) ==
LOC: DI.CARD 09:24
PROVIDERS: PCP Nurse Practitioner Family; Visit Provider Internal Medicine Cardiovascular Disease
DX: I25.10 Atherosclerotic heart disease of native coronary artery without angina pectoris (principal); I21.3 ST elevation (STEMI) myocardial infarction of unspecified site; I51.7 Cardiomegaly
CPT/HCPCS: 93010